=== PATIENT | male | born 1985 | race Caucasian/White ===

== ENCOUNTER 2022-05-16 23:39 | Inpatient (IN) ==
--- NOTE | 2022-05-16 23:53 | Emergency Department Note ---
Impression & Plan Psychosis ADMIT ED Provider Note HPI: The patient is a 37-year-old male who presents the emergency department with a chief complaint of hallucinations. Patient arrives via police escort under 302 petition that was filed by one of the patient's roommates in his trailer. Patient reportedly has been having hallucinations, he states he has been hearing voices around his home, states that he hears them underneath the trailer and outside of his home talking about "loading guns". Patient reportedly was concerned that someone was stalking him. Patient denies any suicidal or homicidal intent but states "I would defend myself if I had to". Please admit to the home multiple times today. On arrival here to the ED the patient is alert, he does appear to be responding to internal stimuli at times but is not aggressive, he is cooperative with history and exam. ROS: - Per HPI *Outpatient medications and allergy history reviewed. *Pertinent external medical records reviewed. PE: General: Alert HEENT: Normocephalic, trachea midline Eyes: Extraocular eye movement is intact, no scleral erythema Pulmonary: Clear to auscultation bilaterally, no wheezing Cardio: Regular rate and rhythm GI: Abdomen is soft, nontender : No suprapubic tenderness MSK: No evidence of trauma or malformation of the extremities, no edema Skin: No evidence of rash Neuro: Alert, no focal deficits Psychiatric: Slight delay in response to questioning, appears to be responding to internal stimuli at times, otherwise cooperative CT HEAD: No acute intracranial abnormality. Polypoid disease versus a retention cyst in the left maxillary sinus. Radiologist: Jose Johnson MD Medical Decision Making: Patient presented to the emergency department with hallucinations. 302 was filed by one of the patient's roommates. On arrival here to the ED the patient is alert, he is not aggressive and is otherwise cooperative. He tells me that he is hearing voices and people outside of his trailer and he does believe that they are talking about loading guns and believes one of them is out to get him. Patient denies any other suicidal or homicidal thoughts specifically. Per 302 petition patient exhibited some concern that someone was stalking him, this was listed as being one of his roommates. The other room and then filed a 302. There was concern that the patient might act violently towards one of the roommates in a psychotic state thinking that they were "out to get him". I think given his acute psychosis and the safety of his roommates at his current residence he is appropriate for inpatient admission medical clearance was obtained here in the ED including negative CT imaging of the head. Patient was evaluated at 3 S. and was ultimately excepted for inpatient psychiatric care under 302 that was upheld by myself. Diagnosis: 1. Acute psychosis 2. Auditory hallucinations Disposition: Admission Josep Gray DO Emergency Medicine Past Med/Surg History Social History Smoking Status: Never smoker Tobacco Type: Smokeless Tobacco (Dip or Chew) Feels Safe at Home: Yes Gender Identity: Male Allergies Allergies Allergy/AdvReac Type Severity Reaction Status Date / Time bee venom protein (honey bee) Allergy Unknown HIVES, Verified 04/30/20 15:27 HEADACHE, DIFFICULTY BREATHING Home Meds Home Medications Medication Instructions Recorded Confirmed No Known Home Medications 04/30/20 05/17/22 Results & Data (ED) Vital Signs Vital Signs - 24 hr 05/16/22 23:47 05/17/22 03:20 Temperature 36.8 C 36.4 C L Temperature Source Oral Oral Pulse Rate 113 H Pulse Rate [Right Finger] 95 H Pulse Rhythm Regular Respiratory Rate 18 18 Respiratory Effort / Characteristics Non-Labored Respiratory Depth Normal Respiratory Pattern Regular Blood Pressure 145/104 H Blood Pressure [Right Arm] 126/94 Blood Pressure Mean 117 Blood Pressure Mean [Right Arm] 104 Blood Pressure Position [Right Arm] Lying Pulse Oximetry 96 96 Oxygen Delivery Method Room Air Room Air Sepsis Recent Fever Within 48 Hours No Sepsis New/Unexplained Change in Mental Status No Sepsis Action Taken by Nursing No Action Required Laboratory Data 05/17/22 00:29 05/17/22 00:29 Lab Results 05/16/22 05/16/22 05/17/22 Range/Units 23:46 23:46 00:02 WBC (4.8-10.8) K/ul RBC (4.70-6.10) M/uL Hgb (14.0-18.0) g/dl Hct (42.0-52.0) % MCV (80.0-100.0) fL MCH (25.0-34.0) pg MCHC (32.0-36.0) g/dL RDW Std Deviation (36.4-46.3) fL RDW Coeff of Gabriele (11.5-14.5) % Plt Count (130-400) K/uL MPV (9.4-12.4) fL Immature Gran % (Auto) % Neut % (Auto) % Lymph % (Auto) % [place] % (Auto) % Eos % (Auto) % Baso % (Auto) % Neut # (Auto) (1.40-6.50) K/uL Lymph # (Auto) (1.2-3.4) K/uL [place] # (Auto) (0.11-0.59) K/uL Eos # (Auto) (0-0.50) K/uL Baso # (Auto) (0-0.2) K/uL Immature Gran # (Auto) (0.01-0.20) K/uL Sodium (136-145) mmol/L Potassium (3.5-5.1) mmol/L Chloride (98-107) mmol/L Carbon Dioxide (21-32) mmol/L Anion Gap (3-11) BUN (6-23) mg/dl Creatinine (0.6-1.4) mg/dl Est Cr Clr Drug Dosing ml/min Est GFR ( Amer) ml/min Est GFR (Non-Af Amer) ml/min BUN/Creatinine Ratio (10-20) Glucose (70-99(Fasting)) mg/dl Calcium (8.5-10.1) mg/dl Total Bilirubin (0.2-1.0) mg/dl AST (13-39) U/L ALT (7-52) U/L Alkaline Phosphatase (34-104) U/L Total Protein (6.0-8.3) gm/dl Albumin (3.4-5.0) gm/dl Globulin (2.5-4.0) gm/dl Albumin/Globulin Ratio (0.9-2) TSH (0.300-4.500) uIu/ml Urine Color Yellow Urine Appearance Clear (Clear) Urine pH 5.5 (4.5-7.5) Ur Specific Adrian 1.006 (1.000-1.030) Urine Protein Negative (Negative) Urine Glucose (UA) Negative (Negative) Urine Ketones 1+ H (Negative) Urine Blood Trace H (Negative) Urine Nitrite Negative (Negative) Urine Bilirubin Negative (Negative) Urine Urobilinogen Negative (Negative) Ur Leukocyte Esterase Negative (Negative) Urine WBC (Auto) 1-5 (0-5) /hpf Urine RBC (Auto) 0-4 (0-4) /hpf U Hyaline Cast (Auto) 0 (0-5) /lpf U Epithel Cells (Auto) 0-5 (0-5) /lpf Urine Bacteria (Auto) Negative (Negative) Salicylates (3.0-30) mg/dl Urine Opiates Screen Neg (Neg) Ur Methadone, Qual Neg (Neg) Acetaminophen (10-30) ug/ml Urine Barbiturates Neg (Neg) Ur Phencyclidine (PCP) Neg (Neg) U Amphetamin/Meth Scrn Neg (Neg) MDMA (Ecstasy) Screen Neg (Neg) U Benzodiazepines Scrn Neg (Neg) Ur Cocaine Metabolite Neg (Neg) U Marijuana (THC) Screen Neg (Neg) Ethyl Alcohol mg/dL (<10.0) mg/dl SARS-CoV-2, RNA, NAAT NEGATIVE (NEGATIVE) 05/17/22 05/17/22 05/17/22 Range/Units 00:29 00:29 00:29 WBC 9.49 (4.8-10.8) K/ul RBC 5.16 (4.70-6.10) M/uL Hgb 17.0 (14.0-18.0) g/dl Hct 48.4 (42.0-52.0) % MCV 93.8 (80.0-100.0) fL MCH 32.9 (25.0-34.0) pg MCHC 35.1 (32.0-36.0) g/dL RDW Std Deviation 43.7 (36.4-46.3) fL RDW Coeff of Gabriele 12.5 (11.5-14.5) % Plt Count 301 (130-400) K/uL MPV 9.4 (9.4-12.4) fL Immature Gran % (Auto) 0.2 % Neut % (Auto) 65.9 % Lymph % (Auto) 22.8 % [place] % (Auto) 9.5 % Eos % (Auto) 1.3 % Baso % (Auto) 0.3 % Neut # (Auto) 6.26 (1.40-6.50) K/uL Lymph # (Auto) 2.16 (1.2-3.4) K/uL [place] # (Auto) 0.90 H (0.11-0.59) K/uL Eos # (Auto) 0.12 (0-0.50) K/uL Baso # (Auto) 0.03 (0-0.2) K/uL Immature Gran # (Auto) 0.02 (0.01-0.20) K/uL Sodium 134 L (136-145) mmol/L Potassium 3.7 (3.5-5.1) mmol/L Chloride 101 (98-107) mmol/L Carbon Dioxide 24 (21-32) mmol/L Anion Gap 9 (3-11) BUN 8 (6-23) mg/dl Creatinine 0.92 (0.6-1.4) mg/dl Est Cr Clr Drug Dosing 121.7 ml/min Est GFR ( Amer) 123.6 ml/min Est GFR (Non-Af Amer) 106.6 ml/min BUN/Creatinine Ratio 8.7 L (10-20) Glucose 108 H (70-99(Fasting)) mg/dl Calcium 9.6 (8.5-10.1) mg/dl Total Bilirubin 1.1 H (0.2-1.0) mg/dl AST 18 (13-39) U/L ALT 17 (7-52) U/L Alkaline Phosphatase 76 (34-104) U/L Total Protein 7.7 (6.0-8.3) gm/dl Albumin 4.6 (3.4-5.0) gm/dl Globulin 3.1 (2.5-4.0) gm/dl Albumin/Globulin Ratio 1.5 (0.9-2) TSH 2.262 (0.300-4.500) uIu/ml Urine Color Urine Appearance (Clear) Urine pH (4.5-7.5) Ur Specific Adrian (1.000-1.030) Urine Protein (Negative) Urine Glucose (UA) (Negative) Urine Ketones (Negative) Urine Blood (Negative) Urine Nitrite (Negative) Urine Bilirubin (Negative) Urine Urobilinogen (Negative) Ur Leukocyte Esterase (Negative) Urine WBC (Auto) (0-5) /hpf Urine RBC (Auto) (0-4) /hpf U Hyaline Cast (Auto) (0-5) /lpf U Epithel Cells (Auto) (0-5) /lpf Urine Bacteria (Auto) (Negative) Salicylates (3.0-30) mg/dl Urine Opiates Screen (Neg) Ur Methadone, Qual (Neg) Acetaminophen (10-30) ug/ml Urine Barbiturates (Neg) Ur Phencyclidine (PCP) (Neg) U Amphetamin/Meth Scrn (Neg) MDMA (Ecstasy) Screen (Neg) U Benzodiazepines Scrn (Neg) Ur Cocaine Metabolite (Neg) U Marijuana (THC) Screen (Neg) Ethyl Alcohol mg/dL (<10.0) mg/dl SARS-CoV-2, RNA, NAAT (NEGATIVE) 05/17/22 05/17/22 Range/Units 00:29 00:29 WBC (4.8-10.8) K/ul RBC (4.70-6.10) M/uL Hgb (14.0-18.0) g/dl Hct (42.0-52.0) % MCV (80.0-100.0) fL MCH (25.0-34.0) pg MCHC (32.0-36.0) g/dL RDW Std Deviation (36.4-46.3) fL RDW Coeff of Gabriele (11.5-14.5) % Plt Count (130-400) K/uL MPV (9.4-12.4) fL Immature Gran % (Auto) % Neut % (Auto) % Lymph % (Auto) % [place] % (Auto) % Eos % (Auto) % Baso % (Auto) % Neut # (Auto) (1.40-6.50) K/uL Lymph # (Auto) (1.2-3.4) K/uL [place] # (Auto) (0.11-0.59) K/uL Eos # (Auto) (0-0.50) K/uL Baso # (Auto) (0-0.2) K/uL Immature Gran # (Auto) (0.01-0.20) K/uL Sodium (136-145) mmol/L Potassium (3.5-5.1) mmol/L Chloride (98-107) mmol/L Carbon Dioxide (21-32) mmol/L Anion Gap (3-11) BUN (6-23) mg/dl Creatinine (0.6-1.4) mg/dl Est Cr Clr Drug Dosing ml/min Est GFR ( Amer) ml/min Est GFR (Non-Af Amer) ml/min BUN/Creatinine Ratio (10-20) Glucose (70-99(Fasting)) mg/dl Calcium (8.5-10.1) mg/dl Total Bilirubin (0.2-1.0) mg/dl AST (13-39) U/L ALT (7-52) U/L Alkaline Phosphatase (34-104) U/L Total Protein (6.0-8.3) gm/dl Albumin (3.4-5.0) gm/dl Globulin (2.5-4.0) gm/dl Albumin/Globulin Ratio (0.9-2) TSH (0.300-4.500) uIu/ml Urine Color Urine Appearance (Clear) Urine pH (4.5-7.5) Ur Specific Adrian (1.000-1.030) Urine Protein (Negative) Urine Glucose (UA) (Negative) Urine Ketones (Negative) Urine Blood (Negative) Urine Nitrite (Negative) Urine Bilirubin (Negative) Urine Urobilinogen (Negative) Ur Leukocyte Esterase (Negative) Urine WBC (Auto) (0-5) /hpf Urine RBC (Auto) (0-4) /hpf U Hyaline Cast (Auto) (0-5) /lpf U Epithel Cells (Auto) (0-5) /lpf Urine Bacteria (Auto) (Negative) Salicylates < 3.0 L (3.0-30) mg/dl Urine Opiates Screen (Neg) Ur Methadone, Qual (Neg) Acetaminophen < 3 L (10-30) ug/ml Urine Barbiturates (Neg) Ur Phencyclidine (PCP) (Neg) U Amphetamin/Meth Scrn (Neg) MDMA (Ecstasy) Screen (Neg) U Benzodiazepines Scrn (Neg) Ur Cocaine Metabolite (Neg) U Marijuana (THC) Screen (Neg) Ethyl Alcohol mg/dL < 10.0 (<10.0) mg/dl SARS-CoV-2, RNA, NAAT (NEGATIVE) Discharge Plan Visit Data Chief Complaint: Mental Health Evaluation Stated Complaint: MENTAL HEALTH EVALUATION ED Provider: Josep Gray Discharge Problem: Psychosis Forms Stand Alone Forms: [facility], Suicide Prevention Resources Prescriptions Prescriptions: No Action No Known Home Medications Referrals Referrals: Police,[facility] [Non-Staff] - Psychosis Qualifiers: Psychosis type: delusional disorder Qualified Code(s): F22 - Delusional disorders
[2022-05-17 00:14] LABS: Appearance Urine Clear (Clear); Bacteria Urine Automated Negative (Negative); Bilirubin Urine Negative (Negative); Blood Urine Trace (Negative); Cast Urine Automated 0 /lpf (0-5); Color Urine Yellow; Epithelial Cell Urine Auto 0-5 /lpf (0-5); Glucose Urine UA Negative (Negative); Ketones Urine 1+ (Negative); Leukocyte Esterase Urine Negative (Negative); Nitrite Urine Negative (Negative); Protein Urine Negative (Negative); RBC Urine Automated 0-4 /hpf (0-4); Specific Gravity Urine 1.006 (1.000-1.030); Urobilinogen Urine Negative (Negative); pH Urine 5.5 (4.5-7.5)
[2022-05-17 00:31] LABS: Amphetamines+Metham, Urine Neg (Neg); Barbiturates, Urine Neg (Neg); Benzodiazepine, Urine Neg (Neg); Cocaine, Urine Neg (Neg); MDMA (Ecstacy), Urine Neg (Neg); Methadone, Urine Neg (Neg); Opiate, Urine Neg (Neg); Phencyclidine, Urine Neg (Neg)
[2022-05-17 00:54] LABS: Basophils # (auto) 0.03 K/uL (0-0.2); Basophils % (auto) 0.3 %; Eosinophils # (auto) 0.12 K/uL (0-0.50); Eosinophils % (auto) 1.3 %; Hematocrit (blood only) 48.4 % (42.0-52.0); Immature Granulocytes # (auto) 0.02 K/uL (0.01-0.20); Immature Granulocytes % (auto) 0.2 %; Lymphocytes # (auto) 2.16 K/uL (1.2-3.4); Lymphocytes % (auto) 22.8 %; Mean Corpuscular Hemoglobin 32.9 pg (25.0-34.0); Mean Corpuscular Hgb Conc 35.1 g/dL (32.0-36.0); Mean Corpuscular Volume 93.8 fL (80.0-100.0); Mean Platelet Volume 9.4 fL (9.4-12.4); Monocytes % (auto) 9.5 %; Neutrophils # (auto) 6.26 K/uL (1.40-6.50); Neutrophils % (auto) 65.9 %; Platelet Count 301 K/uL (130-400); RDW Coefficient of Variation 12.5 % (11.5-14.5); RDW Standard Deviation 43.7 fL (36.4-46.3); Red Blood Count 5.16 M/uL (4.70-6.10); White Blood Count 9.49 K/ul (4.8-10.8)
[2022-05-17 01:11] LABS: Albumin Globulin Ratio 1.5 (0.9-2); Albumin Level 4.6 gm/dl (3.4-5.0); BUN Creatinine Ratio 8.7 (10-20); Bilirubin,Total 1.1 mg/dl (0.2-1.0); Calcium 9.6 mg/dl (8.5-10.1); Creatinine Clr Calc Pharmacy 121.7 ml/min; Est GFR (African American) 123.6 ml/min; Est GFR (Non-African American) 106.6 ml/min; Globulin 3.1 gm/dl (2.5-4.0); Potassium 3.7 mmol/L (3.5-5.1); Total Protein 7.7 gm/dl (6.0-8.3)
[2022-05-17 01:45] LABS: Acetaminophen < 3 ug/ml (10-30); Salicylate < 3.0 mg/dl (3.0-30)
[2022-05-17] MEDS ORDERED: ALUMINUM/MAGNESIUM SUSP 30 ML UDC PO PRN (03:26)
[2022-05-17] MEDS ORDERED: BISMUTH SUBSALICYLATE LIQD 236 ML PO PRN (03:26)
[2022-05-17] MEDS ORDERED: hydrOXYzine HCl 25 MG TAB PO PRN ×2 (03:26)
[2022-05-17] MEDS ORDERED: SODIUM CHLORIDE 0.65% NA SOLN 45 ML (OCEAN) PRN (03:26)
[2022-05-17] MEDS ORDERED: ACETAMINOPHEN 325 MG TAB PO PRN (03:26)
[2022-05-17] MEDS ORDERED: MAGNESIUM HYDROXIDE SUSP 30 ML UDC PO PRN (03:26)
[2022-05-17] MEDS ORDERED: OLANZapine 5 MG TABLET PO PRN (03:29)
[2022-05-17] MEDS ORDERED: OLANZapine 10 MG/2.1 ML SDV IM PRN (03:38)
--- NOTE | 2022-05-17 07:47 | CT Scan Report ---
CT head/brain wo con CLINICAL HISTORY: AMS Technique: Contiguous axial CT images of the head were acquired from the base of the skull to the bailey luc without intravenous contrast administration. Images were viewed in brain, subdural and [facility]. Automated dose lowering techniques and/or adjustment according to patient size were utilized for this exam. Comparison: Comparison is made to CT head 04/30/2020 Findings: The ventricles, basal cisterns, and cerebral sulci are normal. There is no acute intracranial hemorrh age or evidence of acute territorial infarction. Neither mass effect, shift of the midline structures , nor abnormal extra-axial fluid collections are shown. Mucous retention cyst is in the left maxillary sinus. The orbits appear normal. There are no acute f ractures of the calvaria or scalp swelling. Impression: No acute intracranial hemorrhage, no evidence of acute territorial infarction or other acute intracra nial disease process. ACT 112: Negative or not required by law. Electronically signed by: Andrez Rosa M.D. 05/17/2022 7:46 AM
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
[2022-05-17] MEDS ORDERED: OLANZapine ZYDIS 5 MG ORALLY DIS. TAB PO SCH (12:15)
--- NOTE | 2022-05-17 14:39 | Communication Note ---
Date of Service: May 17, 2022 I spoke by phone with CHUY Hollis at [facility] to review pt's history and reasons for referral. She said they would be happy to accept him in transfer.
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
== END 2022-05-17 20:05 | DRG 885 ==
LOC: ED 23:39 → 3S 05-17 03:26 → SUATTDRO 05-17 03:26 → 3S 05-17 04:07

== ENCOUNTER 2023-04-16 23:18 | Inpatient (IN) ==
[2023-04-16 23:59] LABS: Appearance Urine Clear (Clear); Blood Urine Negative (Negative); Color Urine Dark Yellow; Glucose Urine UA Trace (Negative); Ketones Urine 1+ (Negative); Leukocyte Esterase Urine Negative (Negative); Nitrite Urine Negative (Negative); Protein Urine Negative (Negative); Specific Gravity Urine 1.027 (1.000-1.030); Urobilinogen Urine Positive (Negative)
[2023-04-17 00:02] LABS: Bilirubin Urine 1+ (Negative)
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
[2023-04-17 00:14] LABS: Albumin Globulin Ratio 1.8 (0.9-2); Albumin Level 4.9 gm/dl (3.4-5.0); BUN Creatinine Ratio 13.3 (10-20); Bilirubin,Total 0.6 mg/dl (0.2-1.0); Est GFR (African American) 113.7 ml/min; Est GFR (Non-African American) 98.1 ml/min; Globulin 2.8 gm/dl (2.5-4.0); Potassium 3.6 mmol/L (3.5-5.1); Total Protein 7.7 gm/dl (6.0-8.3)
[2023-04-17 00:19] LABS: Basophils # (auto) 0.05 K/uL (0.00-0.20); Basophils % (auto) 0.6 %; Eosinophils # (auto) 0.15 K/uL (0.00-0.50); Eosinophils % (auto) 1.7 %; Hematocrit (blood only) 46.2 % (42.0-52.0); Hemoglobin 16.1 g/dl (14.0-18.0); Immature Granulocytes # (auto) 0.02 K/uL (0.01-0.20); Immature Granulocytes % (auto) 0.2 %; Lymphocytes # (auto) 1.99 K/uL (1.20-3.40); Lymphocytes % (auto) 22.2 %; Mean Corpuscular Hemoglobin 32.6 pg (25.0-34.0); Mean Corpuscular Hgb Conc 34.8 g/dL (32.0-36.0); Mean Corpuscular Volume 93.5 fL (80.0-100.0); Mean Platelet Volume 9.5 fL (9.4-12.4); Monocytes # (auto) 0.81 K/uL (0.11-0.59); Neutrophils # (auto) 5.96 K/uL (1.40-6.50); Neutrophils % (auto) 66.3 %; Platelet Count 338 K/uL (130-400); RDW Coefficient of Variation 12.4 % (11.5-14.5); Red Blood Count 4.94 M/uL (4.70-6.10); White Blood Count 8.98 K/ul (4.8-10.8)
[2023-04-17 00:20] LABS: Amphetamines+Metham, Urine Neg (Neg); Barbiturates, Urine Neg (Neg); Benzodiazepine, Urine Neg (Neg); Cocaine, Urine Neg (Neg); MDMA (Ecstacy), Urine Neg (Neg); Marijuana, Urine Neg (Neg); Methadone, Urine Neg (Neg); Opiate, Urine Neg (Neg); Phencyclidine, Urine Neg (Neg)
[2023-04-17 00:26] LABS: Acetaminophen < 3 ug/ml (10-30); Salicylate < 3.0 mg/dl (3.0-30)
[2023-04-17 00:29] LABS: Thyroid Stimulating Hormone 2.142 uIu/ml (0.300-4.500)
[2023-04-17] MEDS ORDERED: hydrOXYzine HCl 25 MG TAB PO PRN (06:16)
[2023-04-17] MEDS ORDERED: ACETAMINOPHEN 325 MG TAB PO PRN (06:16)
[2023-04-17] MEDS ORDERED: MAGNESIUM HYDROXIDE SUSP 30 ML UDC PO PRN (06:16)
[2023-04-17] MEDS ORDERED: ALUMINUM/MAGNESIUM SUSP 30 ML UDC PO PRN (06:16)
[2023-04-17] MEDS ORDERED: BISMUTH SUBSALICYLATE LIQD 236 ML PO PRN (06:16)
[2023-04-17] MEDS ORDERED: SODIUM CHLORIDE 0.65% NA SOLN 45 ML (OCEAN) PRN (06:16)
[2023-04-17] MEDS: OLANZapine 5 MG TABLET PO PRN ×2 (11:18→18:51)
[2023-04-17] MEDS: LORazepam 1 MG TAB PO PRN (13:13)
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
[2023-04-17] MEDS ORDERED: OLANZapine 10 MG TAB PO SCH (22:00)
[2023-04-18 08:44] LABS: Chol HDL Ratio 6.7 (0-5)
[2023-04-18] MEDS: OLANZapine 5 MG TABLET PO PRN (09:04)
--- NOTE | 2023-04-18 14:28 | Psychiatric Progress Note ---
Date of Service April 18, 2023 Impression / Recommendations Impression 38 yo male with multiple delusions of persecution in the setting of noncompliance with Risperdal for undetermined period. He lacks insight into his condition and need for medication. A private room remains medically necessary for the safety of self and others given severity of paranoia, recent command hallucinations. Overall, I spent a total of 40 minutes with this case, including review of chart, direct evaluation of the patient, counseling the patient, ordering medication, treatment team, risk assessment, and documentation. (1) Paranoid schizophrenia: Plan 04/18/23: Patient submitted 72 hr notice, he voiced understanding that he needs to continued to be monitored during restart of medication and have a family meeting, etc. He prefers ongoing stay on a 72 hr notice over an involuntary commitment adding "I don't want to be here 2 weeks." He continues to state he does not want BRYANT even after explanation that Invega is not only option. Significant improvement overnight, will offer 15 mg Zyprexa this hs to consolidate dosing toward bedtime. Patient unlikely to take medication more than once a day. 04/17/23: The patient was admitted to the [facility] ([facility] mental health unit) on q15 min checks (behavioral with suicide precautions) for safety. The patient will participate in group, recreational, and milieu therapies and will be offered additional individual and family sessions as clinically appropriate. patient is not currently agreeing to resume Risperdal or willing to discuss Invega trial which could be given as a BRYANT. Patient will be offered Zyprexa and Ativan prns as per last stay with fasting labs if willing to cooperate. He has never used CPAP consistently and it cannot be accommodated on our unit at this time but will monitor. Inventory Assets Strengths: voluntary, hx of med reponse, supportive family Needs: improve insight into condition, improve med compliance Suicide Risk Level Suicide Risk Level: Low (q15 min observation checks) Risk Factors Assessment Do You Have Access To A Gun?: Yes (states there is a gun cabinet in house) Mental Health Diagnoses: Yes Substance Use Disorders: No Previous Attempt: Yes Previous Psychiatric Hospitalization: Yes Protective Factors Assessment Employed: No (car broke down - lost job) Supportive Family: Yes Interval History Identifying Information DM CARRILLO is a 38-year-old M who currently lives in [place], has a history of a prior admission to on May 23, and was admitted on 04/17/23 04:21 on a 201 voluntary commitment for hallucinations and paranoia. Chief Complaint submitted 72 hr notice Review of Systems Sleep Information Total Hours of Sleep: 8 Sleep Comments: Pt given PRN Ativan Meal Information Percent Meal Consumed - Breakfast: 80 Percent Meal Consumed - Lunch: 100 Percent Meal Consumed - Dinner: 0 Nutrition Comment: Pt is soundly asleep,tray was safed Subjective Subjective Patient was seen & assessed and interval progress reviewed with treatment team. Received multiple prns of Zyprexa and Ativan yesterday for paranoid delusions, blocking. Continues to stare through staff at times. This am is focussed on leaving so he doesn't "get behind on student loans." Reviewed with patient that he came in very symptomatic, remains in distress re: his neighbors, and we would like to engage his mother in his care/aftercare planning. SW identifying additional [facility] resources for patient. Physical Exam Psychiatric Orientation: alert Apperance: + disheveled Eye Contact: + fair eye contact (psychotic stare) Motor Behavior: no abnormal motor movements Speech: normal rate/rhythm/volume of speech Affect: + blunted affect Mood: + anxious mood Thought Process: + tangential thought process and + concrete thought process Thought Content: + delusions and + persecution Suicidal Thoughts: denies suicidal thoughts Homicidal Thoughts: denies homicidal thoughts Hallucinations: no auditory hallucinations and no visual hallucinations Cognition: language grossly intact; + attention not intact Estimated Intelligence: consistent with education level Insight: + poor insight Judgment: + poor judgement Vital Signs (Past 24 Hours) Last Vital Signs Temp 36.4 C L 04/18/23 06:08 Pulse 80 04/18/23 06:08 Resp 20 04/18/23 06:08 BP 100/63 04/18/23 06:08 Pulse Ox 97 04/18/23 06:08 O2 Del Method Room Air 04/18/23 06:08 Results & Data ([facility]) Laboratory Results Laboratory Results - last 24 hr 04/18/23 08:05 Fasting Glucose 92 Triglycerides 145 Cholesterol 188 LDL Cholesterol, Calc 131 VLDL Cholesterol, Calc 29 HDL Cholesterol 28 Cholesterol/HDL Ratio 6.7 H Current Inpatient Medications Current Inpatient Medications: Current Inpatient Medications Acetaminophen (Acetaminophen 325 Mg Tab) 650 mg PO Q4H PRN PRN Reason: Headache or Minor Fever Stop: 05/17/23 06:15 Al Hydrox/Mg Hydrox/Simethicone (Aluminum/Magnesium Susp 30 Ml Udc) 30 ml PO Q4H PRN PRN Reason: GI Upset Stop: 05/17/23 06:15 Bismuth Subsalicylate (Bismuth Subsalicylate Liqd 236 Ml) 15 ml PO PRN PRN PRN Reason: Loose Stool Stop: 05/17/23 06:15 Hydroxyzine HCl (Hydroxyzine Hcl 25 Mg Tab) 50 mg PO HSZ PRN PRN Reason: Insomnia Stop: 05/17/23 06:15 Lorazepam (Lorazepam 1 Mg Tab) 1 mg PO Q6H PRN PRN Reason: Anxiety Stop: 05/17/23 06:16 Last Admin: 04/17/23 13:13 Dose: 1 mg Magnesium Hydroxide (Magnesium Hydroxide Susp 30 Ml Udc) 30 ml PO DAILY PRN PRN Reason: Constipation Stop: 05/17/23 06:15 Olanzapine (Olanzapine 5 Mg Tablet) 5 mg PO Q4 PRN PRN Reason: Anxiety/Agitation Stop: 05/17/23 11:59 Last Admin: 04/18/23 09:04 Dose: 5 mg Olanzapine (Olanzapine 10 Mg Tab) 10 mg PO HS SCOUT Stop: 05/17/23 21:59 Last Admin: 04/17/23 21:13 Dose: 10 mg Sodium Chloride (Sodium Chloride 0.65% Na Soln 45 Ml ([place])) 1 - 2 sprays NA PRN PRN PRN Reason: Nasal Dryness/Congestion Stop: 05/17/23 06:15 Mental Health & Subst Abuse Tx Psychiatrist Name of Psychiatrist: Yuliana Hines Psychiatrist's [id number] Date Of Appointment With Psychiatric Provider: 05/01/23 Time of Appointment with Psychiatrist: 11:00 AM Psychiatric Appointment Comment: VVC - access via personal device Therapist Name of Therapist: [facility] Poly-Trauma Therapist's [id number] Date of Therapist Appointment: 05/06/23 Time of Therapist Appointment: 10:00 AM Therapy Appointment Comment: VVC - access via personal device Shipping And Receiving Operator Name of Shipping And Receiving Operator: None Post Discharge Appointments Primary Care Physician Name Of Family Doctor/PCP: [facility] Date of Future Appointment with PCP: 04/25/23 Time of Appointment with PCP: 11:00 AM Provider Appointment Comment: [address] [place] [address] Telephone Order Clerk Name of Telephone Order Clerk: RIGO Woodall Phone Number of Telephone Order Clerk: [phone] Date of Appointment with Telephone Order Clerk: 05/13/23 Time of Appointment with Telephone Order Clerk: 2:30 PM Telephone Order Clerk Appointment Comment: material specialist will call you to do intake. Neurologist Name of Neurologist: [facility] Stuart Neurologist's Date of Appointment with Neurologist: 04/30/23 Time of Appointment with Neurologist: 10:30 AM Neurology Appointment Comment: [address] [place] [address] Specialist Name of Specialist: [place] [facility] Nurse Phone Number for Specialist: [phone] Date of Appointment with Specialist: 04/25/23 Time of Appointment with Specialist: 11:00 AM Specialty Appointment Comment: VVC - access via personal device Contact Information Discharge Discharge Address: [address] [place], [place] [address] [id number]
[2023-04-18] MEDS: LORazepam 1 MG TAB PO PRN (17:31)
[2023-04-18] MEDS: OLANZapine 5 MG TABLET PO SCH (20:24)
[2023-04-19] MEDS: LORazepam 1 MG TAB PO PRN (08:59)
[2023-04-19] MEDS ORDERED: hydrOXYzine HCl 25 MG TAB PO PRN (16:41)
[2023-04-19] MEDS ORDERED: NICOTINE POLACRILEX 2 MG GUM MT PRN (18:41)
[2023-04-19] MEDS: OLANZapine 5 MG TABLET PO SCH (21:16)
--- NOTE | 2023-04-19 23:44 | Psychiatric Progress Note ---
Date of Service April 19, 2023 Impression / Recommendations Impression 04/19/2023: Reports "feeling better" but is very vague about in what way. He thinks the olanzapine "is helping", remains unwilling to consider paliperidone trial. Has received several PRN doses of lorazepam for anxiety, which appears to leave him visibly sedated. Less preoccupied with persecutory fears, but still says "the police should do their job" (without being able to say specifically what he thinks they should do). Is able to say he feels his mother is safe. 04/18/2023: 38 yo male with multiple delusions of persecution in the setting of noncompliance with Risperdal for undetermined period. He lacks insight into his condition and need for medication. A private room remains medically necessary for the safety of self and others given severity of paranoia, recent command hallucinations. (1) Paranoid schizophrenia: Plan 04/19/2023: * continue olanzapine 15 mg QHS * add hydroxyzine 25 mg Q6H PRN anxitey 04/18/23: Patient submitted 72 hr notice, he voiced understanding that he needs to continued to be monitored during restart of medication and have a family meeting, etc. He prefers ongoing stay on a 72 hr notice over an involuntary commitment adding "I don't want to be here 2 weeks." He continues to state he does not want BRYANT even after explanation that Invega is not only option. Significant improvement overnight, will offer 15 mg Zyprexa this hs to consolidate dosing toward bedtime. Patient unlikely to take medication more than once a day. 04/17/23: The patient was admitted to the [facility] ([facility] unit) on q15 min checks (behavioral with suicide precautions) for safety. The patient will participate in group, recreational, and milieu therapies and will be offered additional individual and family sessions as clinically appropriate. patient is not currently agreeing to resume Risperdal or willing to discuss Invega trial which could be given as a BRYANT. Patient will be offered Zyprexa and Ativan prns as per last stay with fasting labs if willing to cooperate. He has never used CPAP consistently and it cannot be accommodated on our unit at this time but will monitor. Inventory Assets Strengths: voluntary, hx of med reponse, supportive family Needs: improve insight into condition, improve med compliance Suicide Risk Level Suicide Risk Level: Low (q15 min observation checks) Risk Factors Assessment Do You Have Access To A Gun?: Yes (states there is a gun cabinet in house) Mental Health Diagnoses: Yes Substance Use Disorders: No Previous Attempt: Yes Previous Psychiatric Hospitalization: Yes Protective Factors Assessment Employed: No (car broke down - lost job) Supportive Family: Yes Interval History Identifying Information DM CARRILLO is a 38-year-old M who currently lives in [place], has a history of a prior admission to on May 23, and was admitted on 04/17/23 04:21 on a 201 voluntary commitment for hallucinations and paranoia. Chief Complaint "I'm feeling better". Review of Systems Sleep Information Total Hours of Sleep: 9.25 Sleep Comments: Pt given PRN Ativan Meal Information Percent Meal Consumed - Breakfast: 75 Percent Meal Consumed - Lunch: 85 Percent Meal Consumed - Dinner: 95 Nutrition Comment: Pt is soundly asleep,tray was safed Subjective Subjective The patient was seen and assessed and interval progress reviewed in a multidisciplinary team meeting with the treatment team. For details, see the "Impression" section. Overall I spent a total of 50 minutes for this inpatient follow-up including review of chart records, review of test results, direct evaluation of the patient [id number], counseling the patient, reconciling and ordering medication, medication education with the patient, risk assessment, discussion during interdisciplinary treatment rounds, and documentation in the electronic health record. Physical Exam Psychiatric Orientation: alert Apperance: + disheveled Eye Contact: + fair eye contact (psychotic stare) Motor Behavior: no abnormal motor movements Speech: normal rate/rhythm/volume of speech Affect: + depressed affect, + anxious affect and + blunted affect Mood: + depressed mood and + anxious mood Thought Process: + thought blocking, + tangential thought process, + flight of ideas and + concrete thought process Thought Content: + delusions, + thought broadcasting and + persecution; not paranoid Suicidal Thoughts: denies suicidal thoughts Homicidal Thoughts: denies homicidal thoughts Hallucinations: no auditory hallucinations and no visual hallucinations Cognition: language grossly intact; + attention not intact Estimated Intelligence: consistent with education level Insight: + poor insight Judgment: + poor judgement Vital Signs (Past 24 Hours) Last Vital Signs Temp 36.5 C 04/19/23 06:00 Pulse 86 04/19/23 06:00 Resp 16 04/19/23 06:00 BP 148/98 H 04/19/23 06:00 Pulse Ox 98 04/19/23 06:00 O2 Del Method Room Air 04/19/23 06:00 Results & Data ([facility]) Current Inpatient Medications Current Inpatient Medications: Current Inpatient Medications Acetaminophen (Acetaminophen 325 Mg Tab) 650 mg PO Q4H PRN PRN Reason: Headache or Minor Fever Stop: 05/17/23 06:15 Al Hydrox/Mg Hydrox/Simethicone (Aluminum/Magnesium Susp 30 Ml Udc) 30 ml PO Q4H PRN PRN Reason: GI Upset Stop: 05/17/23 06:15 Last Admin: 04/18/23 23:23 Dose: 30 ml Bismuth Subsalicylate (Bismuth Subsalicylate Liqd 236 Ml) 15 ml PO PRN PRN PRN Reason: Loose Stool Stop: 05/17/23 06:15 Hydroxyzine HCl (Hydroxyzine Hcl 25 Mg Tab) 50 mg PO HSZ PRN PRN Reason: Insomnia Stop: 05/17/23 06:15 Hydroxyzine HCl (Hydroxyzine Hcl 25 Mg Tab) 25 mg PO Q6H PRN PRN Reason: Anxiety Stop: 05/19/23 16:44 Lorazepam (Lorazepam 1 Mg Tab) 1 mg PO Q6H PRN PRN Reason: Anxiety Stop: 05/17/23 06:16 Last Admin: 04/19/23 08:59 Dose: 1 mg Magnesium Hydroxide (Magnesium Hydroxide Susp 30 Ml Udc) 30 ml PO DAILY PRN PRN Reason: Constipation Stop: 05/17/23 06:15 Nicotine Polacrilex (Nicotine Polacrilex 2 Mg Gum) 2 piece MT PRN PRN PRN Reason: smoking cessation Stop: 05/19/23 18:40 Last Admin: 04/19/23 18:47 Dose: 2 piece Olanzapine (Olanzapine 5 Mg Tablet) 5 mg PO Q4 PRN PRN Reason: Anxiety/Agitation Stop: 05/17/23 11:59 Last Admin: 04/18/23 09:04 Dose: 5 mg Olanzapine (Olanzapine 5 Mg Tablet) 15 mg PO HS SCOUT Stop: 05/18/23 21:59 Last Admin: 01/20/24 21:16 Dose: 15 mg Sodium Chloride (Sodium Chloride 0.65% Na Soln 45 Ml ([place])) 1 - 2 sprays NA PRN PRN PRN Reason: Nasal Dryness/Congestion Stop: 05/17/23 06:15 Mental Health & Subst Abuse Tx Psychiatrist Name of Psychiatrist: Yuliana Donny Psychiatrist's [id number] Date Of Appointment With Psychiatric Provider: 05/01/23 Time of Appointment with Psychiatrist: 11:00 AM Psychiatric Appointment Comment: VVC - access via personal device Therapist Name of Therapist: [facility] Poly-Trauma Therapist's [id number] Date of Therapist Appointment: 05/06/23 Time of Therapist Appointment: 10:00 AM Therapy Appointment Comment: VVC - access via personal device Night Cleaner Name of Night Cleaner: None Post Discharge Appointments Primary Care Physician Name Of Family Doctor/PCP: [facility] Date of Future Appointment with PCP: 04/25/23 Time of Appointment with PCP: 11:00 AM Provider Appointment Comment: [address], [place] [address] Mortgage Manager Name of Mortgage Manager: [place] Nika Woodall Phone Number of Mortgage Manager: [phone] Date of Appointment with Mortgage Manager: 05/13/23 Time of Appointment with Mortgage Manager: 2:30 PM Mortgage Manager Appointment Comment: experience specialist will call you to do intake. Neurologist Name of Neurologist: [facility] Yun Neurologist's Date of Appointment with Neurologist: 04/30/23 Time of Appointment with Neurologist: 10:30 AM Neurology Appointment Comment: [address] [place] [address] Specialist Name of Specialist: [facility] Nurse Phone Number for Specialist: [phone] Date of Appointment with Specialist: 04/25/23 Time of Appointment with Specialist: 11:00 AM Specialty Appointment Comment: VVC - access via personal device Contact Information Discharge Discharge [address]: [address] [place] [id number]
--- NOTE | 2023-04-20 14:27 | Psychiatric Progress Note ---
Date of Service April 20, 2023 Impression / Recommendations Impression 04/20/2023: Has been less anxious, but has not yet been given any hydroxyzine so that medication certainly doesn't account for this improvement. Less constricted today, presents with broader range of affect. 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 He does say "I know I've got this bipolar [sic] thing and that I'll need to stay on medication for it". Reviewed his hope for discharge tomorrow, which based on his current presentation seems reasonable. 04/19/2023: Reports "feeling better" but is very vague about in what way. He thinks the olanzapine "is helping", remains unwilling to consider paliperidone trial. Has received several PRN doses of lorazepam for anxiety, which appears to leave him visibly sedated. Less preoccupied with persecutory fears, but still says "the police should do their job" (without being able to say specifically what he thinks they should do). Is able to say he feels his mother is safe. 04/18/2023: 38 yo male with multiple delusions of persecution in the setting of noncompliance with Risperdal for undetermined period. He lacks insight into his condition and need for medication. A private room remains medically necessary for the safety of self and others given severity of paranoia, recent command hallucinations. (1) Paranoid schizophrenia: Plan 04/20/2023: * continue olanzapine 15 mg QHS * continue hydroxyzine 25 mg Q6H PRN anxitey * anticipate discharge tomorrow 04/19/2023: * continue olanzapine 15 mg QHS * add hydroxyzine 25 mg Q6H PRN anxitey 04/18/23: Patient submitted 72 hr notice, he voiced understanding that he needs to continued to be monitored during restart of medication and have a family meeting, etc. He prefers ongoing stay on a 72 hr notice over an involuntary commitment adding "I don't want to be here 2 weeks." He continues to state he does not want BRYANT even after explanation that Invega is not only option. Significant improvement overnight, will offer 15 mg Zyprexa this hs to consolidate dosing toward bedtime. Patient unlikely to take medication more than once a day. 04/17/23: The patient was admitted to the [facility] ([facility]) on q15 min checks (behavioral with suicide precautions) for safety. The patient will participate in group, recreational, and milieu therapies and will be offered additional individual and family sessions as clinically appropriate. patient is not currently agreeing to resume Risperdal or willing to discuss Invega trial which could be given as a BRYANT. Patient will be offered Zyprexa and Ativan prns as per last stay with fasting labs if willing to cooperate. He has never used CPAP consistently and it cannot be accommodated on our unit at this time but will monitor. Inventory Assets Strengths: voluntary, hx of med reponse, supportive family Needs: improve insight into condition, improve med compliance Suicide Risk Level Suicide Risk Level: Low (q15 min observation checks) Risk Factors Assessment Do You Have Access To A Gun?: Yes (states there is a gun cabinet in house) Mental Health Diagnoses: Yes Substance Use Disorders: No Previous Attempt: Yes Previous Psychiatric Hospitalization: Yes Protective Factors Assessment Employed: No (car broke down - lost job) Supportive Family: Yes Interval History Identifying Information DM CARRILLO is a 38-year-old M who currently lives in [place], has a history of a prior admission to on May 23, and was admitted on 04/17/23 04:21 on a 201 voluntary commitment for hallucinations and paranoia. 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 Review of Systems Sleep Information Total Hours of Sleep: 5.5 Sleep Comments: Pt given PRN Ativan Meal Information Percent Meal Consumed - Breakfast: 100 Percent Meal Consumed - Lunch: 100 Percent Meal Consumed - Dinner: 95 Nutrition Comment: Pt is soundly asleep,tray was safed Subjective Subjective The patient was seen and assessed and interval progress reviewed in a multidisciplinary team meeting with the treatment team. For details, see the "Impression" section. Overall I spent a total of 46 minutes for this inpatient follow-up including review of chart records, [review of test results, ]direct evaluation of the patient [id number], counseling the patient, [reconciling and ordering medication, ]medication education with the patient, risk assessment, discussion during interdisciplinary treatment rounds, and documentation in the electronic health record. Physical Exam Psychiatric Orientation: alert Apperance: + disheveled Eye Contact: + fair eye contact (psychotic stare) Motor Behavior: no abnormal motor movements Speech: normal rate/rhythm/volume of speech Affect: + depressed affect, + anxious affect and + blunted affect Mood: + depressed mood and + anxious mood Thought Process: + thought blocking, + tangential thought process, + flight of ideas and + concrete thought process Thought Content: + delusions, + thought broadcasting and + persecution; not paranoid Suicidal Thoughts: denies suicidal thoughts Homicidal Thoughts: denies homicidal thoughts Hallucinations: no auditory hallucinations and no visual hallucinations Cognition: language grossly intact; + attention not intact Estimated Intelligence: consistent with education level Insight: + poor insight Judgment: + poor judgement Vital Signs (Past 24 Hours) Last Vital Signs Temp 37.2 C 04/20/23 06:55 Pulse 58 L 04/20/23 06:55 Resp 16 04/20/23 06:55 BP 134/79 04/20/23 06:55 Pulse Ox 96 04/20/23 06:55 O2 Del Method Room Air 04/20/23 06:55 Results & Data ([facility]) Current Inpatient Medications Current Inpatient Medications: Current Inpatient Medications Acetaminophen (Acetaminophen 325 Mg Tab) 650 mg PO Q4H PRN PRN Reason: Headache or Minor Fever Stop: 05/17/23 06:15 Al Hydrox/Mg Hydrox/Simethicone (Aluminum/Magnesium Susp 30 Ml Udc) 30 ml PO Q4H PRN PRN Reason: GI Upset Stop: 05/17/23 06:15 Last Admin: 04/18/23 23:23 Dose: 30 ml Bismuth Subsalicylate (Bismuth Subsalicylate Liqd 236 Ml) 15 ml PO PRN PRN PRN Reason: Loose Stool Stop: 05/17/23 06:15 Hydroxyzine HCl (Hydroxyzine Hcl 25 Mg Tab) 50 mg PO HSZ PRN PRN Reason: Insomnia Stop: 05/17/23 06:15 Hydroxyzine HCl (Hydroxyzine Hcl 25 Mg Tab) 25 mg PO Q6H PRN PRN Reason: Anxiety Stop: 05/19/23 16:44 Lorazepam (Lorazepam 1 Mg Tab) 1 mg PO Q6H PRN PRN Reason: Anxiety Stop: 05/17/23 06:16 Last Admin: 04/19/23 08:59 Dose: 1 mg Magnesium Hydroxide (Magnesium Hydroxide Susp 30 Ml Udc) 30 ml PO DAILY PRN PRN Reason: Constipation Stop: 05/17/23 06:15 Nicotine Polacrilex (Nicotine Polacrilex 2 Mg Gum) 2 piece MT PRN PRN PRN Reason: smoking cessation Stop: 05/19/23 18:40 Last Admin: 04/19/23 18:47 Dose: 2 piece Olanzapine (Olanzapine 5 Mg Tablet) 5 mg PO Q4 PRN PRN Reason: Anxiety/Agitation Stop: 05/17/23 11:59 Last Admin: 04/18/23 09:04 Dose: 5 mg Olanzapine (Olanzapine 5 Mg Tablet) 15 mg PO HS SCOUT Stop: 05/18/23 21:59 Last Admin: 04/19/23 21:16 Dose: 15 mg Sodium Chloride (Sodium Chloride 0.65% Na Soln 45 Ml ([place])) 1 - 2 sprays NA PRN PRN PRN Reason: Nasal Dryness/Congestion Stop: 05/17/23 06:15 Mental Health & Subst Abuse Tx Psychiatrist Name of Psychiatrist: Yuliana Hines Psychiatrist's [id number] Date Of Appointment With Psychiatric Provider: 05/01/23 Time of Appointment with Psychiatrist: 11:00 AM Psychiatric Appointment Comment: VVC - access via personal device Therapist Name of Therapist: [facility] N[facility] Therapist's [id number] Date of Therapist Appointment: 05/06/23 Time of Therapist Appointment: 10:00 AM Therapy Appointment Comment: VVC - access via personal device Finance Lead Name of Finance Lead: None Post Discharge Appointments Primary Care Physician Name Of Family Doctor/PCP: [facility] Date of Future Appointment with PCP: 04/25/23 Time of Appointment with PCP: 11:00 AM Provider Appointment Comment: [facility] [address], [place] [address] Senior Research Project Manager Name of Senior Research Project Manager: RIGO Woodall Phone Number of Senior Research Project Manager: [phone] Date of Appointment with Senior Research Project Manager: 05/13/23 Time of Appointment with Senior Research Project Manager: 2:30 PM Senior Research Project Manager Appointment Comment: import/export specialist will call you to do intake. Neurologist Name of Neurologist: RIGO Malcolm Neurologist's Date of Appointment with Neurologist: 04/30/23 Time of Appointment with Neurologist: 10:30 AM Neurology Appointment Comment: [id number] [place] [address] Specialist Name of Specialist: [facility] Phone Number for Specialist: [phone] Date of Appointment with Specialist: 04/25/23 Time of Appointment with Specialist: 11:00 AM Specialty Appointment Comment: VVC - access via personal device Contact Information Discharge Discharge Address: [address] [place] [id number]
[2023-04-20] MEDS: OLANZapine 5 MG TABLET PO SCH (21:53)
--- NOTE | 2023-04-21 09:32 | Discharge Summary ---
Date of Service April 21, 2023 History of Present Illness As per ED CM: Howard was brought to ED for a mental health evaluation by [facility]. Howard called [facility] due to thinking there were people under his trailer. Howard stated he is hearing people talking under the trailer saying "we got him." He stated he is hearing "guns being cocked." Howard stated he also hear the neighbors talking about a PFA. He stated he thinks someone put a PFA on him "but no one has given me any paperwork." Howard stated he has no money, he lost his job because he has 2 broken down cars. He stated he is living with his mother, step father, and sister. He stated "I sleep on a chair." He stated he has financial stressors due to having $60,000 in student loans. Howard stated he was in the [employer] for 12 years and discharged in 2008. He stated he has been "trying to get back on my feet." He stated the past three years have been "one bad thing after another." Howard stated his sleep is "pretty fucking bad because I don't know what I'm going to do." He stated his appetite is poor and "most days I don't give a shit about eating." Howard stated his is not completing his ADLs regularly stating "I'm pretty fucking depressed." He denies any legal issues. He denies alcohol or substance use. He stated "I've been talking to the floor - "are you trying to make me freeze to ?" Howard is perseverating on the possibility of one day becoming homeless. Howard stated he is prescribed Risperidone. He stated the medication was causing him to have difficulty concentrating and focusing. Howard stated stopped taking the medication due to "[facility] tried [facility] because I couldn't focus on a task." Howard is agreeable with recomme ndation for inpatient mental health treatment and he is agreeable with referral to a [facility] facility. Presentation similar to last stay where roommate involved police and he was 302. Patient stares and insists that others are talking about him, accusing him of being a pedophile, following him around "like when I went to [place] for 5 months and they followed me, check the GPS." Staff confirmed with mother that his condition declined when he stopped medication and has since decompensated. The patient believes that medications "just make me less sharp so I'll miss what is going on." Physical Exam Psychiatric Orientation: alert Apperance: appropriately groomed Eye Contact: good eye contact Motor Behavior: no abnormal motor movements Speech: normal rate/rhythm/volume of speech Affect: + constricted affect Mood: + anxious mood and + dysphoric mood Thought Process: + concrete thought process Thought Content: reality based without delusions; not paranoid Suicidal Thoughts: denies suicidal thoughts Homicidal Thoughts: denies homicidal thoughts Hallucinations: no auditory hallucinations and no visual hallucinations Cognition: language grossly intact; + attention not intact Estimated Intelligence: consistent with education level Insight: + poor insight and + fair insight Judgment: + fair judgement Vital Signs (Past 24 Hours) Last Vital Signs Temp 36.6 C 04/21/23 07:06 Pulse 86 04/21/23 07:06 Resp 16 04/21/23 07:06 BP 145/82 H 04/21/23 07:06 Pulse Ox 96 04/21/23 07:06 O2 Del Method Room Air 04/20/23 06:55 See admission H&P and DOD assessment. Principal Diagnosis Schizophrenia Psychiatric Data See daily stay summary. In short, safety was maintained and the patient was cooperative with care. Medication changes included addition of olanzapine 15 mg QHS and they tolerated this well. An attempt was made to get him to consider a BRYANT antipsychotic. A safety plan was completed prior to discharge. 04/20/2023: Has been less anxious, but has not yet been given any hydroxyzine so that medication certainly doesn't account for this improvement. Less constricted today, presents with broader range of affect. 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 He does say "I know I've got this bipolar [sic] thing and that I'll need to stay on medication for it". Reviewed his hope for discharge tomorrow, which based on his current presentation seems reasonable. 04/19/2023: Reports "feeling better" but is very vague about in what way. He thinks the olanzapine "is helping", remains unwilling to consider paliperidone trial. Has received several PRN doses of lorazepam for anxiety, which appears to leave him visibly sedated. Less preoccupied with persecutory fears, but still says "the police should do their job" (without being able to say specifically what he thinks they should do). Is able to say he feels his mother is safe. 04/18/2023: 38 yo male with multiple delusions of persecution in the setting of noncompliance with Risperdal for undetermined period. He lacks insight into his condition and need for medication. Day of Discharge Assessment Today the patient voices readiness for discharge. They note improvement in mood and deny thoughts to harm self or others. Thoughts remain organized and they are improved from admission. There is no evidence of psychosis. They agree to take mediations as prescribed and keep follow-up appointments. They are stable for discharge to outpatient level of care. Overall I spent a total of 35 minutes on the floor for this discharge including review of chart records, review of test results, direct evaluation of the p atient [id number], counseling the patient, reconciling and ordering medication, medication education with the patient, risk assessment, discussion during interdisciplinary treatment rounds, and documentation in the electronic health record. Transition of Care Transition Of Care Record: was reviewed with the patient Advance Directives Advance Directives Information Provided: Yes Advance Directives: No Mental Health Advance Directive: No Advance Directives on File: No Living Will: No Power of Cryptographic Clerk: No Advance Directives Reason:: Declines as Mental Health Visit. Suicide Risk Level Suicide Risk Level Comments: Suicide risk at discharge is deemed low as the patient is no longer requiring 24-hr monitoring, has a safety plan, and is free of suicidal ideation at discharge. Risk Factors Assessment Male: Yes : Yes Do You Have Access To A Gun?: Yes (states there is a gun cabinet in house) Health Problems: No Mental Health Diagnoses: Yes Substance Use Disorders: No Previous Attempt: Yes Previous Psychiatric Hospitalization: Yes Hopelessness: No Protective Factors Assessment : No Responsible for Young Children: No Employed: No (car broke down - lost job) Stable Relationships: Yes Supportive Family: Yes Total Time Total Time Spent: Greater Than 30 Minutes (35) Total Time Includes: Examination of the patient, Discharge Planning, Medication Reconciliation and As well as (documentation) Discharge Data Lab Results 04/16/23 04/16/23 04/17/23 23:24 23:35 01:45 WBC 8.98 RBC 4.94 Hgb 16.1 Hct 46.2 MCV 93.5 MCH 32.6 MCHC 34.8 RDW Std Deviation 43.0 RDW Coeff of Gabriele 12.4 Plt Count 338 MPV 9.5 Immature Gran % (Auto) 0.2 Neut % (Auto) 66.3 Lymph % (Auto) 22.2 Summit % (Auto) 9.0 Eos % (Auto) 1.7 Baso % (Auto) 0.6 Neut # (Auto) 5.96 Lymph # (Auto) 1.99 Summit # (Auto) 0.81 H Eos # (Auto) 0.15 Baso # (Auto) 0.05 Immature Gran # (Auto) 0.02 Sodium 136 Potassium 3.6 Chloride 104 Carbon Dioxide 23 Anion Gap 9 BUN 13 Creatinine 0.98 Est Cr Clr Drug Dosing 123.0 Est GFR ( Amer) 113.7 Est GFR (Non-Af Amer) 98.1 BUN/Creatinine Ratio 13.3 Glucose 143 H Fasting Glucose Calcium 9.0 Total Bilirubin 0.6 AST 14 ALT 11 Alkaline Phosphatase 88 Total Protein 7.7 Albumin 4.9 Globulin 2.8 Albumin/Globulin Ratio 1.8 Triglycerides Cholesterol LDL Cholesterol, Calc VLDL Cholesterol, Calc HDL Cholesterol Cholesterol/HDL Ratio TSH 2.142 Urine Color Dark Yellow Urine Appearance Clear Urine pH 6.0 Ur Specific [place] 1.027 Urine Protein Negative Urine Glucose (UA) Trace H Urine Ketones 1+ H Urine Blood Negative Urine Nitrite Negative Urine Bilirubin 1+ H Urine Urobilinogen Positive H Ur Leukocyte Esterase Negative Salicylates < 3.0 L Urine Opiates Screen Neg Ur Methadone, Qual Neg Acetaminophen < 3 L Urine Barbiturates Neg Ur Phencyclidine (PCP) Neg U Amphetamin/Meth Scrn Neg MDMA (Ecstasy) Screen Neg U Benzodiazepines Scrn Neg Ur Cocaine Metabolite Neg U Marijuana (THC) Screen Neg Ethyl Alcohol mg/dL < 10.0 SARS-CoV-2, RNA, NAAT NEGATIVE 04/18/23 08:05 WBC RBC Hgb Hct MCV MCH MCHC RDW Std Deviation RDW Coeff of Gabriele Plt Count MPV Immature Gran % (Auto) Neut % (Auto) Lymph % (Auto) Summit % (Auto) Eos % (Auto) Baso % (Auto) Neut # (Auto) Lymph # (Auto) Summit # (Auto) Eos # (Auto) Baso # (Auto) Immature Gran # (Auto) Sodium Potassium Chloride Carbon Dioxide Anion Gap BUN Creatinine Est Cr Clr Drug Dosing Est GFR ( Amer) Est GFR (Non-Af Amer) BUN/Creatinine Ratio Glucose Fasting Glucose 92 Calcium Total Bilirubin AST ALT Alkaline Phosphatase Total Protein Albumin Globulin Albumin/Globulin Ratio Triglycerides 145 Cholesterol 188 LDL Cholesterol, Calc 131 VLDL Cholesterol, Calc 29 HDL Cholesterol 28 Cholesterol/HDL Ratio 6.7 H TSH Urine Color Urine Appearance Urine pH Ur Specific [place] Urine Protein Urine Glucose (UA) Urine Ketones Urine Blood Urine Nitrite Urine Bilirubin Urine Urobilinogen Ur Leukocyte Esterase Salicylates Urine Opiates Screen Ur Methadone, Qual Acetaminophen Urine Barbiturates Ur Phencyclidine (PCP) U Amphetamin/Meth Scrn MDMA (Ecstasy) Screen U Benzodiazepines Scrn Ur Cocaine Metabolite U Marijuana (THC) Screen Ethyl Alcohol mg/dL SARS-CoV-2, RNA, NAAT Hospital Course (1) Paranoid schizophrenia: Plan 04/20/2023: * continue olanzapine 15 mg QHS * continue hydroxyzine 25 mg Q6H PRN anxitey * anticipate discharge tomorrow 04/19/2023: * continue olanzapine 15 mg QHS * add hydroxyzine 25 mg Q6H PRN anxitey 04/18/23: Patient submitted 72 hr notice, he voiced understanding that he needs to continued to be monitored during restart of medication and have a family meeting, etc. He prefers ongoing stay on a 72 hr notice over an involuntary commitment adding "I don't want to be here 2 weeks." He continues to state he does not want BRYANT even after explanation that Invega is not only option. Significant improvement overnight, will offer 15 mg Zyprexa this hs to consolidate dosing toward bedtime. Patient unlikely to take medication more than once a day. 04/17/23: The patient was admitted to the [facility] ([facility] mental health unit) on q15 min checks (behavioral with suicide precautions) for safety. The patient will participate in group, recreational, and milieu therapies and will be offered additional individual and family sessions as clinically appropriate. patient is not currently agreeing to resume Risperdal or willing to discuss Invega trial which could be given as a BRYANT. Patient will be offered Zyprexa and Ativan prns as per last stay with fasting labs if willing to cooperate. He has never used CPAP consistently and it cannot be accommodated on our unit at this time but will monitor. Mental Health & Subst Abuse Tx Psychiatrist Name of Psychiatrist: Yuliana Hines Psychiatrist's [id number] Date Of Appointment With Psychiatric Provider: 05/01/23 Time of Appointment with Psychiatrist: 11:00 AM Psychiatric Appointment Comment: VVC - access via personal device Psychiatrist Release of Information: Obtained, Reviewed and Signed Therapist Name of Therapist: [facility] Poly-Trauma Therapist's [id number] Date of Therapist Appointment: 05/06/23 Time of Therapist Appointment: 10:00 AM Therapy Appointment Comment: VVC - access via personal device Therapist Release of Information: Obtained, Reviewed and Signed Lawn Service Worker Name of Lawn Service Worker: None Post Discharge Appointments Primary Care Physician Name Of Family Doctor/PCP: [facility] Date of Future Appointment with PCP: 04/25/23 Time of Appointment with PCP: 11:00 AM Provider Appointment Comment: [address], [place] [address] Primary Care Release of Information: Obtained, Reviewed and Signed Metal Fabricator Welder Name of Metal Fabricator Welder: [place] Nika Woodall Phone Number of Metal Fabricator Welder: [phone] Date of Appointment with Metal Fabricator Welder: 05/13/23 Time of Appointment with Metal Fabricator Welder: 2:30 PM Metal Fabricator Welder Appointment Comment: loss prevention specialist will call you to do intake. Release of Information for Metal Fabricator Welder: Obtained, Reviewed and Signed Neurologist Name of Neurologist: [facility] Yun Neurologist's Date of Appointment with Neurologist: 04/30/23 Time of Appointment with Neurologist: 10:30 AM Neurology Appointment Comment: [address] [place] [address] Release of Information for Neurologist: Obtained, Reviewed and Signed Specialist Name of Specialist: [facility] Phone Number for Specialist: [phone] Date of Appointment with Specialist: 04/25/23 Time of Appointment with Specialist: 11:00 AM Specialty Appointment Comment: VVC - access via personal device Specialist Release of Information: Obtained, Reviewed and Signed Contact Information Discharge Discharge Address: [address] [place] [id number] Discharge Plan Discharge Items Patient Disposition: Home - Self-Care Reason For Visit: PSYCHOTIC DISORDER Discharge Diagnosis: Schizophrenia Activity: Resume your previous activity Non-emergency contact: Primary Care Provider and Psychiatrist Call non-emergency contact if: you have any medication questions and your symptoms worsen Follow-up/Referrals: PCP,NO [Primary Care Provider] - Diet: Regular Addtl Attending Provider Instructions: SPECIAL CARE INSTRUCTIONS: 1. Follow through with your scheduled aftercare appointments. If unable to keep an appointment, please call to reschedule. 2. Take your medication only as prescribed. Medication should not be changed or stopped without the approval of your doctor. In the event of worsening symptoms or concerns about side effects, contact your doctor immediately. 3. Utilize new healthy coping skills, anger management skills, and stress management skills learned during your hospitalization. Journal feelings and process them with a support person. Identify stressors or situations that may result in relapse, deterioration or inappropriate behaviors and develop a plan to deal with those issues. 4. If your coping skills are ineffective and you are in crisis, contact your outpatient providers for direction. If unable to reach your providers, please call the [facility] CRISIS LINE AT , go to the [facility] walk-in center at [address], [place], or go to the closest Emergency Room. 5. Avoid alcohol and un-prescribed drugs. 6. You have been provided with the Mental Health Advance Directives Pamphlet for your review. 7. Your condition is stable for discharge to outpatient level of care, but recovery is an ongoing process. Ifthoughts to harm yourself or others return, follow the safety plan developed during your stay. Planning for a safe return home includes securing weapons. Our treatment team recommends weaponsbe removed from the home until your outpatient provider reassesses your progress. In rare cases where the items themselvescannot be removed, guns and ammunitionshould be secured separatelyand keys stored by a reliable personoutside of the home. If you were admitted on an involuntary commitment, the police or other legal authorities may be involved in this process. AFTERCARE APPOINTMENTS: * Please call your insurance company prior to your scheduled appointment to confirm your aftercare providers are covered. Take your insurance information to your appointments. WHO TO CALL AND WHEN: Medical Emergencies: For questions or emergencies related to your hospital stay, please contact the Inpatient Behavioral Health Unit at [phone]. A biological science technician fish is on-call 21/10 for the Behavioral Health Unit for emergencies At any time you feel your situation is an emergency, you may also call 911 immediately. Pending Studies at Discharge: No Stand-Alone Forms: [email or web address], Smoking Cessation Medications and DC Order Prescriptions: New olanzapine 15 mg tablet 15 mg PO HS 30 Days Qty: 30 0RF Discharge Orders: Discharge Order (Routine); Ordered 04/21/23 Ordered By: Josep Alfonso Admission Data Admit Date/Time: 04/17/23 04:21 Attending Provider: Bridget Reeves Admit Provider: Bridget Reeves Primary Care Provider: PCP,NO Other [facility]iders[facility] Other Interventions: Discharge Summary Assessment (RN) Last Done: 04/21/23 07:06 PSY Interdisciplinary Discharge Planning Last Done: 04/21/23 08:24 Coding Level of Care Code 52363 D/C day mgmt > 30 min Diagnoses Paranoid schizophrenia F20.0 Time Spent (min) 35
== END 2023-04-21 09:58 | disposition home or self-care (01) | DRG 885 ==
LOC: ED 23:18 → 3S 04-17 04:21